=== PATIENT | male | born 1955 | race Caucasian/White ===

== ENCOUNTER → 2019-03-04 | Emergency (ER) | payer SELFPAY ==
[~2019-03-04] VITALS: Ht 180.3 cm; Wt 78.9 kg
[2019-03-04 12:35] VITALS: BP 104/65
--- NOTE | 2019-03-04 12:39 | NUR ---
ED Nurse Note: pt walked in to ED due to right hip pain. surgery done 2 months ago. per pt "I want 2 tabs of percocet" will wait for the further order.
--- NOTE | 2019-03-04 12:47 | NUR ---
ED Nurse Note: pt refused the medication that offered by [facility]. pt specifically wants 2 tab of percocet. PT raised the voice and told PA "fuck bitch I do not want that." pt walked out the unit.
[2019-03-04 12:48] VITALS: BP 104/65
--- NOTE | 2019-03-04 12:50 | Emergency Room Report ---
History of Present Illness General Chief Complaint: Medication Refill Source: Patient Present Illness HPI 63-year-old male with history of hip surgery that reports that occurred in [facility] 2 months ago here requesting 2 tablets of specifically Percocet. Patient reports that he fell 2 months ago in [place] and had hip surgery and currently under pain management he missed his pain management appointment due to having pneumonia and being at a different hospital few days ago and does not have an appointment until Tuesday patient is requesting 2 tablets of Percocet the emergency room he has been using different names recently, so [facility] also suggesting to take those 2 tablets with him patient then reports that he is allergic to Tylenol with codeine however and has an allergy review records shows that he has no allergy to codeine. Patient is rating his pain 10 out of 10 using a cane saying that he goes to [facility] and does not see his primary care physician nor pain management until next week using derogatory language with me yelling and being verbally abusive when told that will not be offered anything more than a Toradol injection at the emergency room he leaves before the paperwork are done for injection given. Denies chest pain, shortness of breath, palpitation, no other associated symptoms. Allergies: Coded Allergies: PENICILLINS (Verified Allergy, Unknown, 03/04/19) Patient History Past Medical History: see triage record Past Surgical History: unable to obtain Pertinent Family History: none Social History: Reports: smoking Immunizations: UTD Reviewed Nursing Documentation: PMH: Agreed; PSxH: Agreed Nursing Documentation-PMH Past Medical History: No History, Except For Review of Systems All Other Systems: negative except mentioned in HPI Physical Exam Vital Signs Date Time Temp Pulse Resp B/P (MAP) Pulse Ox O2 Delivery O2 Flow Rate FiO2 03/04/19 12:30 97.0 65 18 104/65 (78) 95 Room Air Sp02 EP Interpretation: reviewed, normal General Appearance: normal inspection Head: normocephalic, atraumatic Eyes: bilateral eye normal inspection, bilateral eye PERRL ENT: normal ENT inspection Neck: normal inspection, full range of motion Respiratory: normal inspection, chest non-tender Cardiovascular #1: normal inspection, no murmur Gastrointestinal: normal inspection, soft Genitourinary: no CVA tenderness Musculoskeletal: normal inspection, back normal Neurologic: normal inspection, alert Psychiatric: normal inspection, judgement/insight normal Skin: palpation normal Lymphatic: normal inspection Medical Decision Making PA Attestation All my diagnosis and treatment plans were reviewed ad discussed with my supervising physician Dr. Gallardo Diagnostic Impression: Primary Impression: Opiate use Additional Impressions: Encounter for medication refill Drug-seeking behavior ER Course 63-year-old male with history of hip surgery that reports that occurred in [facility] 2 months ago here requesting 2 tablets of specifically Percocet. Patient reports that he fell 2 months ago in [place] and had hip surgery and currently under pain management he missed his pain management appointment due to having pneumonia and being at a different hospital few days ago and does not have an appointment until Tuesday patient is requesting 2 tablets of Percocet the emergency room he has been using different names recently, so [facility] also suggesting to take those 2 tablets with him patient then reports that he is allergic to Tylenol with codeine however and has an allergy review records shows that he has no allergy to codeine. Patient is rating his pain 10 out of 10 using a cane saying that he goes to [facility] and does not see his primary care physician nor pain management until next week using derogatory language with me yelling and being verbally abusive when told that will not be offered anything more than a Toradol injection at the emergency room he leaves before the paperwork are done for injection given. Denies chest pain, shortness of breath, palpitation, no other associated symptoms. Ddx considered but are not limited to: generalized anxiety disorder, panic attack, depression with psycotic featurs, bipolar disorder, drug overdose Vital signs: are WNL, pt. is afebrile H&PE are most consistent with: Drug-seeking behavior ORDERS: none required at this time, the diagnosis is clinical ED INTERVENTIONS: None required at this time. DISCHARGE: At this time pt. is stable for d/c to home. Will provide printed patient care instructions, and any necessary prescriptions. Care plan and follow up instructions have been discussed with the patient prior to discharge. Follow-up with pain management. Last Vital Signs Date Time Temp Pulse Resp B/P (MAP) Pulse Ox O2 Delivery O2 Flow Rate FiO2 03/04/19 12:35 97.0 65 18 104/65 95 Room Air Disposition: HOME, SELF-CARE Condition: Stable Patient Instructions: Opioid Use Disorder Jolie Remy Mar 04, 2019 12:50
== END | disposition home or self-care (01) ==
LOC: EMR 13:45
DX: F11.90 Opioid use, unspecified, uncomplicated (principal); Z76.0 Encounter for issue of repeat prescription; Z76.5 Malingerer [conscious simulation]; Z88.0 Allergy status to penicillin; F17.200 Nicotine dependence, unspecified, uncomplicated
CPT/HCPCS: 99282